=== PATIENT | female | born 1985 | race African-American/Black ===

== ENCOUNTER 2016-10-16 17:29 | Emergency (ER) | payer OTHER ==
[~2016-10-16] VITALS: Ht 162.6 cm; Wt 112.0 kg
[~2016-10-16 17:29] MED LIST: DOCUSATE SODIU100 MG PO; ENDOCET 5-3251 EACH PO; IBUPROFEN800 MG PO; KEFLEX500 MG PO; Motrin PO; NIFEDIPINE ER30 MG PO; NO MEDS; Percocet 5/325,Endoc PO; SERTRALINE HCL25 MG PO; ULTRAM50 MG; ULTRAM50 MG PO; ZOLOFT50 MG PO
[2016-10-16 20:10] VITALS: BP 145/99
== END 2016-10-16 20:12 | disposition home or self-care (01) ==
LOC: EME 17:29
PROC: 0H91XZZ Drainage of Face Skin, External Approach (ICD-10-PCS; principal; 2016-10-16)
DX: L02.01 Cutaneous abscess of face (principal)
CPT/HCPCS: 87070; 87075; 87077; 87147; 87186; 87205; 99281; 99283

== ENCOUNTER 2016-12-07 14:51 | Emergency (ER) | payer OTHER ==
[~2016-12-07] VITALS: Ht 154.9 cm; Wt 111.7 kg
[2016-12-07 19:20] VITALS: BP 127/75
== END 2016-12-07 19:20 | disposition home or self-care (01) ==
LOC: EME 14:51
PROC: 0HQ1XZZ Repair Face Skin, External Approach (ICD-10-PCS; principal; 2016-12-07)
DX: S01.81XA Laceration without foreign body of other part of head, initial encounter (principal); S09.8XXA Other specified injuries of head, initial encounter; W22.8XXA Striking against or struck by other objects, initial encounter; Y92.009 Unspecified place in unspecified non-institutional (private) residence as the place of occurrence of the external cause; F17.200 Nicotine dependence, unspecified, uncomplicated
CPT/HCPCS: 99281; 99284